=== PATIENT | female | born 1930 | race Caucasian/White ===

== ENCOUNTER 2016-11-10 15:27 | Inpatient (IN) | payer MEDICARE ==
[~2016-11-10] VITALS: Ht 162.6 cm; Wt 63.6 kg
--- NOTE | ~2016-11-10 | PN ---
PATIENT:TAYLOR NUR MEDICAL RECORD: [id number] LOCATION:[facility] ADMISSION DATE: 11/10/16 PROGRESS NOTE DATE OF SERVICE: 11/18/2016 SUBJECTIVE: The patient's case was discussed with staff. She has no new complaint. OBJECTIVE: The patient is in good behavioral control with limited insight about her condition. She is tolerating her medicines well. She denies that she would seek to harm herself or others. Her long-term prognosis is guarded. She is to be discharged today and follow up will be with her primary care physician. TRANSINT:[id number] Voice Confirmation ID: [id number] DOCUMENT ID: [id number] MIROSLAVA ZAPIEN MD CC: [id number] DICTATION DATE: 11/18/16 1416 CAP INSPECTOR: 11/18/16 1754 ADM IN [place] [id number] [place] [id number]
[~2016-11-10 15:27] MED LIST: BAYER CHEWABLE81 MG PO; CHLORTHALIDONE25 MG PO; CLARITIN 10 MG10 MG PO; COZAAR100 MG PO; DILANTIN100 MG PO; GLIMEPIRIDE4 MG PO; GLUCOPHAGE1000 MG PO; LASIX40 MG PO; NASACORT AQ16.5 GM NASAL; PRAVASTATIN SOD10 MG PO; SYNTHROID100 MCG PO; TENORMIN50 MG PO; THERMOTABS 1 GM1 GM PO
[2016-11-10] MEDS ORDERED: KEPPRA500 MG PO (15:37)
[2016-11-10] MEDS ORDERED: SYNTHROID75 MCG PO (15:38)
[2016-11-10] MEDS ORDERED: LIPITOR10 MG PO (15:40)
[2016-11-10] MEDS ORDERED: GLUCOSAMINE & C1 CAP PO (15:43)
[2016-11-10] MEDS ORDERED: METHOTREXATE2.5 MG PO (15:44)
[2016-11-10] MEDS ORDERED: NORVASC5 MG PO (15:45)
[2016-11-10] MEDS ORDERED: FOLIC ACID1 MG PO (15:46)
[2016-11-10] MEDS ORDERED: TEMOVATE30 GM TOPICAL (15:48)
[2016-11-10] MEDS ORDERED: TOPICORT TOPICAL ×2 (15:49)
[2016-11-10] MEDS ORDERED: TRADJENTA5 MG PO (15:51)
[2016-11-10] MEDS ORDERED: MURO-128 OPTH3.5 GM EACH EYE (15:52)
[2016-11-10] MEDS ORDERED: BIOTIN5 MG PO (15:55)
[2016-11-10 17:04] VITALS: BP 141/59; BMI 24.1
--- NOTE | 2016-11-10 18:14 | NUR ---
PATIENT IS ADMITTED TO SON LERNER AND JULIANA, SHE COMES TO [facility] VIA EMS ON A STRETCHER ATTENDED BY TWO EMS STAFF. PATIENT IS ASSISTED OFF OF STRETCHER AND AMBULATES INDEPENDENTLY TO THE CHAIR IN THE DAY ROOM. PATIENT IS AGITATED THAT SHE IS HERE. APPARENTLY SHE MADE THE STATEMENT THAT SHE TRIED TO PUT A PLASTIC BAG OVER HER HEAD TO KILL HERSELF. WHEN ASKED WHY SHE IS HERE SHE SAID "OH, I MADE THE STUPID MISTAKE OF TELLING THEM I WANTED TO KILL MYSELF" DAUGHTER STATES SHE [facility] AND HER MOTHER HAS BEEN WORRIED ABOUT THE TRANSITION. PATIENT DENIES THAT SHE HAS DEMENTIA, BUT IN 2007 SHE HAD A BLEED AND SINCE THE BLEED PATIENT HAS HAD SEIZURES AND DEMENTIA. PATIENT HAS BEEN LIVING AT HOME ALONE WITH A CAREGIVER COMING OVER FOR THREE HOURS EACH DAY. DAUGHTER HAS BEEN SETTING UP HER MEDS FOR HER, BUT PATIENT IS NOT EATING WELL OR SLEEPING WELL. 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 SHE IS SITTING IN THE DAY ROOM READING. 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 HER DAUGHTER TOOK HER WATCH, EAR RINGS, AND LIFE ALERT.
[2016-11-10 18:36] LABS: ANION GAP 15.1 mmol/L (8-16); BILIRUBIN - TOTAL 0.4 mg/dL (0.2-1.3); CARBON DIOXIDE 26.2 mmol/L (21.0-32.0); CHOL - HDL RATIO 1.7 ratio (2.3-4.1); LDL-HDL RATIO 0.5 ratio (1.5-3.5); POTASSIUM - SERUM 4.3 mmol/L (3.5-5.1); PROTEIN - SERUM 7.2 g/dL (6.4-8.2); THYROID STIMULATING HORMONE 0.79 uIU/mL (0.36-3.74)
[2016-11-10 19:12] LABS: HEMOGLOBIN A1C 7.6 % (4.8-6.0)
[2016-11-10 19:25] VITALS: BP 163/58
--- NOTE | 2016-11-10 19:44 | NUR ---
RECEIVED IN DAYROOM. SITTING QUIETLY IN HALLWAY. NOT SOCIALIZING WITH PEERS. CALM AND COOPERATIVE WITH CARE AND ASSESSMENTS. WHEN ASK IF SHE IS THINKING ABOUT HARMING HERSELF SHE STATED 'NO. NOT RIGHT NOW." ENCOURAGE TO EXPRESS NEEDS. CONTINUE PLAN OF CARE
[2016-11-11 07:00] VITALS: BP 132/47
[2016-11-11 09:52] VITALS: BMI 24.0
[2016-11-11 10:37] VITALS: Ht 162.6 cm; Wt 63.6 kg
--- NOTE | 2016-11-11 18:06 | NUR ---
ALERT TO NAME ONLY. DENIES SELF-HARM. COOPERATIVE AND CALM WITH CARE. ASSESSMENT COMPLETED. PRESCRIBED MEDICATIONS GIVEN AND COMPLIANT WITH TAKING. NON-SOCIAL WITH PEERS, SITS IN DINING ROOM READING A BOOK. SAFETY MAINTAINED. WILL COMNTINUE PLAN OF CARE.
[2016-11-11 19:37] VITALS: BP 122/53
--- NOTE | 2016-11-11 19:48 | NUR ---
RECEIVED IN HALLWAY. STANDING AT NURSES STATION. SOCIAL WITH STAFF. CALM AND COOPERATIVE WITH CARE AND ASSESSMENTS. DENIES THOUGHTS OF SELF HARM. CONTINUES TO SIT IN HALLWAY AT THIS TIME. CONTINUE PLAN OF CARE
[2016-11-12 07:02] LABS: APPEARANCE CLEAR (CLEAR); BACTERIA FEW /hpf (NONE SEEN); BILIRUBIN NEGATIVE (NEGATIVE); COLOR YELLOW (YELLOW); EPITHELIAL CELLS 0-5 /hpf (0-5); GLUCOSE NEGATIVE (NEGATIVE); KETONE NEGATIVE (NEGATIVE); LEUKOCYTE ESTERASE TRACE (NEGATIVE); MUCUS <1+ /lpf (NONE SEEN); NITRITE NEGATIVE (NEGATIVE); PROTEIN NEGATIVE (NEGATIVE); UROBILINOGEN NORMAL (NORMAL); WHITE CELLS - URINE 0-5 /hpf (0-5)
[2016-11-12 08:17] LABS: FOLATE (FOLIC ACID) - SERUM >20.0 ng/mL (>3.0)
[2016-11-12 08:48] VITALS: BP 140/57
--- NOTE | 2016-11-12 10:00 | NUR ---
Rec'd pt in dining room for b'fast, alert, pleasant mood at this time, appetite good, feeds self after setup. Meds admin per orders. Group therapy provided. Med compliant. Hazel meds well without s/s adverse reaction. Cont plan of care including meds and group therapy.
[2016-11-12 10:17] LABS: VITAMIN D 25 HYDROXY 27.1 ng/mL (30.0-100.0)
--- NOTE | 2016-11-12 15:29 | PSY ---
PATIENT NAME:TAYLOR NUR MEDICAL RECORD: [id number] : [birth year] LOCATION:[id number] ADMISSION DATE: 11/10/16 ACCOUNT: [id number] PSYCHIATRIC EVALUATION DATE OF EVALUATION: 11/11/16 IDENTIFYING DATA: The patient is 86 years old and she is admitted to the hospital on a voluntary basis. CHIEF COMPLAINT: Depression. HISTORY OF PRESENT ILLNESS: The patient is an elderly woman who has a history of conflict with her family. The brief version of this is that the family wants her to move into an assisted living center and she does not want to go. She took a plastic bag wrapped it around her head in front of her daughter and said she was going to kill herself. The family watched her through the night and then brought her to the hospital the next day. When asked if she wants to kill herself. She says that she has thought about it, but does not really know how she could. She says that the plastic bag did not work very well. She says she does not have a gun and that she has looked up all of her medications and does not think that any of them would do the trick. This is not a very reassuring answer. She denies that she is depressed, but then goes on to endorse numerous neurovegetative depressive symptoms. The core problem as I see it so far is that the patient does not want to go to the [facility]. She wants to live in her own home, but the family does not feel it is safe for her to do that. 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 She does have some mild hearing loss and she has some neuropathy in her legs. She also has thyroid disease and diabetes. The patient has high blood pressure and coronary artery disease and has had angioplasty. She has had a stent placed in her coronary arteries and also has cataracts. FAMILY PSYCHIATRIC HISTORY: Denied by the patient. ALLERGIES: CODEINE. CURRENT MEDICATIONS: Include Lasix, aspirin, Amaryl, Glucophage, Keppra, Synthroid, Lipitor, Norvasc, Pravachol. SOCIAL HISTORY: The patient was once to the same man for 43 years. He about 20 years ago. They had 3 children together, 2 of whom are still living. There is a daughter who is in [place] and apparently, the patient lives in a house close to her in [place]. 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 MENTAL STATUS EXAMINATION: The patient is awake, alert and oriented to person, place, time and situation. Her mood is flat. Her affect is constricted. Thought processes are circumstantial. Memory, concentration and abstraction abilities are mildly impaired. She denies any active intent to harm herself or others. She denies psychotic symptoms. ASSETS: Supportive family members. LIABILITIES: Limited insight. DIAGNOSTIC IMPRESSION: AXIS I: Major depression, severe, recurrent without psychotic features. AXIS II: Deferred. AXIS III: Status post stroke and internal brain bleed. Diabetes, hypertension, hypothyroidism and coronary artery disease. AXIS IV: Moderate stressors. AXIS V: Global assessment of functioning is 35. PLAN: At this time, the patient is admitted to the hospital secondary to suicidal thoughts associated with a depressive illness. She will be tested by Dr. Whitney Gill for evidence of cognitive decline. I am going to give her an antidepressant medication. Her long-term prognosis is guarded. TRANSINT:[id number] Voice Confirmation ID: [id number] DOCUMENT ID: [id number] MIROSLAVA ZAPIEN MD at 1529 CC: [id number] DICTATION DATE: 11/11/16 1451 TECHNICAL SUPPORT ENGINEER: 11/11/16 1602 [facility] IN [place] [id number] [place] [address]
[2016-11-12 19:30] VITALS: BP 150/66
--- NOTE | 2016-11-12 20:20 | NUR ---
B) ALERT AND ORIENTED X 3, CALM AND COOPERATIVE WITH CARE, DENIES SELF-HARM. I) ADMINISTERED PRESCRIBED MEDICATIONS. ASSESSMENT COMPLETED. VSS. R) MEDICATIONS COMPLIANT AND UNIT MILIEU. AMBULATES INDEPENDENTLY. P) CONTINUE PLAN OF CARE.
[2016-11-13 09:41] VITALS: BP 140/59
--- NOTE | 2016-11-13 12:33 | PN ---
PATIENT:TAYLOR NUR MEDICAL RECORD: [id number] LOCATION:[facility] ADMISSION DATE: 11/10/16 PROGRESS NOTE DATE OF SERVICE: 11/12/2016 SUBJECTIVE: The patient's case was discussed with staff. She has no new complaint. OBJECTIVE: The patient denies intent to harm herself or others. She tolerates her medicines well. Eye contact is fair. Concentration is fair. ASSESSMENT: No change in diagnoses. PLAN: Current medicines have been reviewed and will be maintained. Long-term prognosis is guarded. I am encouraged that she no longer is wanting to hurt herself and has started her on antidepressant medications. TRANSINT:[id number] Voice Confirmation ID: [id number] DOCUMENT ID: [id number] MIROSLAVA ZAPIEN MD at 1233 CC: [id number] DICTATION DATE: 11/12/16 1547 BURNER MACHINE OPERATOR: 11/12/16 2155 ADM IN [facility] [address] [place] [address]
[2016-11-13] MEDS ORDERED: CYMBALTA30 MG PO (12:58)
[2016-11-13] MEDS ORDERED: KENALOG 0.1 % 115 GM TOPICAL (12:59)
[2016-11-13] MEDS ORDERED: CLOBETASOL PROP15 GM TOPICAL (12:59)
--- NOTE | 2016-11-13 13:44 | NUR ---
B) PATIENT IS AWAKE AND ALERT, SHE IS ORIENTED X 3 TODAY, SHE DENIES DEPRESSION, SHE DENIES S.I. SHE MOSTLY STAYS TO HERSELF AND READS, SHE CAN BE TERSE AND MATTER OF FACT IN HER ANSWERS TO QUESTIONS AT TIMES. PATIENT AMBULATES WELL INDEPENDETLY. I) PROVIDE PRESCRIBED MEDS. R) PATIENT IS COMPLIANT WITH MEDS. P) CONTINUE POC.
[2016-11-13 19:56] VITALS: BP 137/62
--- NOTE | 2016-11-14 04:04 | NUR ---
B) Patient is alert and oriented X 3, calm and reading a book, keeping to herself, friendly and pleasent during assessment. I) Administered scheduled medications, contracted for safety, monitored for safety. R) medication compliant, no S.I. this shift, no behaviors noted. P) Continue plan of care.
[2016-11-14 09:30] VITALS: BP 119/51
--- NOTE | 2016-11-14 11:54 | PN ---
PATIENT:TAYLOR NUR MEDICAL RECORD: [id number] LOCATION:[facility] ADMISSION DATE: 11/10/16 PROGRESS NOTE DATE OF SERVICE: 11/13/2016 SUBJECTIVE: The patient's case was discussed with staff. She has no new complaint. OBJECTIVE: The patient is in good behavioral control with limited insight about her condition. She does tolerate her medicines well. ASSESSMENT: No change in diagnoses. PLAN: Supportive and educational interventions were made. The patient is tolerating her medicines well. She certainly has no evidence of acute dangerousness. I anticipate she can be transitioned out of the hospital tomorrow. TRANSINT:[id number] Voice Confirmation ID: [id number] DOCUMENT ID: [id number] MIROSLAVA ZAPIEN MD at 1154 CC: [id number] DICTATION DATE: 11/13/16 1252 GERONTOLOGY AIDE: 11/13/16 1920 ADM IN [facility] [address] [place] [address]
--- NOTE | 2016-11-14 12:15 | NUR ---
B) PATIENT IS AWAKE AND ALERT, SHE IS QUIET AND CALM AND STAYS TO HERSELF, SHE HAS MINIMAL CONFUSION, BUT SHE CAN CARRY CONVERSATIONS WELL, SHE DOES WEAR HEARING AIDS. PATIENT IS AMBULATING INDEPENDENTLY. I) PROVIDE PRESCRIBED MEDS. R) PATIENT IS COMPLIANT WITH MEDS. PATIENT'S DAUGHTER DID CALL AND ASK IF PATIENT CAN STAY UNTIL , SPOKE TO DR. ZAPIEN AND SUKHWINDER SHARMA AND BOTH OF THEM STATE THAT THE D/C ORDER IS IN AND ARRANGEMENTS HAVE BEEN MADE FOR A THURSDAY 1300 VISUAL BASIC PROGRAMMER FOR THE PATIENT. SUSAN CORTEZ CALLED PATIENTS DAUGHTER AND RELAYED THIS MESSAGE. PATIENTS DAUGHTER CONCERNED THAT THE CARPET IN THE PATIENTS ROOM WOULD NOT BE CLEAN BY THEN. P) CONTINUE POC.
[2016-11-14 19:58] VITALS: BP 142/69
--- NOTE | 2016-11-15 04:25 | NUR ---
B) Patient alert and oriented, calm and quiet, keeps to herself reading away from the noise in the day room, I) Administered scheduled medications, monitored for safety, contracted for safety. R) Medication compliant, friendly and pleasant, social with staff. P) Continue plan of care.
[2016-11-15 09:50] VITALS: BP 134/47
--- NOTE | 2016-11-15 09:50 | NUR ---
B) PATIENT'S BLOOD SUGAR WAS 62 THIS AM AND SO HER METFORMIN WAS HELD AND SHE REFUSED THE TRAJENTA, SHE AND HER DTR SAY THEY ARE NOT ABLE TO AFFORD IT AFTER SHE DISCHARGES, PATIENT'S DAUGHTER ALSO REQUESTS THE CYMBALTA BE ORDERED DULOXETINE SO THE INSURANCE WILL PAY FOR IT. PATIENT IS AWAKE AND ALERT, SHE IS [place] AND TURNS HER HEARING DOWN AT TIMES SO SHE DOES NOT HAVE TO BE AWARE OF THE OTHER PATIENTS. SHE HAS MADE NO MENTION OF DEPRESSION OR S.I. I) PROVIDE PRESCRIBED MEDS. GAVE TYLENOL 500 MG FOR C/O ACHEY BONES RATES IT 2-3. R) PATIENT IIS COMPLIANT WITH MEDS. P) CONTINUE POC.
--- NOTE | 2016-11-15 10:30 | NUR ---
PATIENT SAYS HER PAIN IS LESS. SHE HAS A BLANKET AND SITTING IN THE DAY ROOM. TRYING TO CLOSE HER EYES.
--- NOTE | 2016-11-15 12:17 | PN ---
PATIENT:TAYLOR NUR MEDICAL RECORD: [id number] LOCATION:[facility] ADMISSION DATE: 11/10/16 PROGRESS NOTE DATE OF SERVICE: 11/14/2016 SUBJECTIVE: The patient's case was discussed with staff. She has no new complaint. OBJECTIVE: The patient is not suicidal. She has a euthymic mood and is read 300 pages of books since yesterday. She kept her mind on it. I asked her questions about what she was reading and she appeared to be giving me interesting run down of the story. I presume it is correct. ASSESSMENT: No change in diagnoses. PLAN: The patient was to be discharge today and is ready to be transitioned to a lower level of care. Unfortunately, her room at the [facility] is not ready and will not be ready until late next week. It would seem appropriate for her to go home with her daughter until that can be arranged and I am not sure why that is not going to happen today. Obviously, we were not going to discharge her from the facility without appropriate supervision housing placement and transportation, but from a clinical standpoint, she is ready to be discharge. TRANSINT:[id number] Voice Confirmation ID: [id number] DOCUMENT ID: [id number] MIROSLAVA ZAPIEN MD at 1217 CC: [id number] DICTATION DATE: 11/14/16 1210 DRUG ABUSE PROGRAM COORDINATOR: 11/14/16 1350 ADM IN [facility] [address] [place] [id number]
[2016-11-15 20:37] VITALS: BP 166/64
[2016-11-15 20:55] VITALS: BP 166/64
--- NOTE | 2016-11-16 04:16 | NUR ---
B) Patient is alert and oriented X 3, keeps to herself with her hearing aids turned down or off, sits quietly resd a book, calm and cooperative with staff, I) Administered scheduled medications, monitored for safety, contracted for safety. R) Medication compliant, pleasant and friendly P) Continue plan of care.
[2016-11-16 07:00] VITALS: BP 132/52
--- NOTE | 2016-11-16 13:22 | NUR ---
IS ALERT AND ORIENTED X 3.DENIES SUICIDAL IDEATIONS AND DEPRESSION.CONTRACTED WITH NURSE TO TALK WITH NURSE IF SHE HAS THOUGHTS OF HARMING SELF.SITS AND READS MOST OF DAY.COMPLIANT WITH STAFF AND MEDS.WILL CONTINUE WITH PLAN OF CARE,MONITOR FOR CHANGES AND SAFETY.
[2016-11-16 20:50] VITALS: BP 124/68
--- NOTE | 2016-11-16 21:00 | NUR ---
RECEIVED IN HALLWAY. STANDING OUTSIDE OF NURSES STATION. ALERT AND OREINTED. CALM AND COOPERATIVE WITH CARE AND ASSESSMENTS. ENCOURAGE TO EXPRESS NEEDS. RESTING IN BED EYES CLOSED AT THIS TIME. CONTINUE PLANH OF CARE
[2016-11-17 07:00] VITALS: BP 139/55
--- NOTE | 2016-11-17 10:00 | NUR ---
ASSESSMENT COMPLETED. SHE OSOLATES HERSELF AND READS. COMPLIANT WITH TAKING MEDS. CONTINUE PLAN OF CARE.
--- NOTE | 2016-11-17 13:45 | PN ---
PATIENT:TAYLOR NUR MEDICAL RECORD: [id number] LOCATION:[facility] ADMISSION DATE: 11/10/16 PROGRESS NOTE DATE OF SERVICE: 11/15/2016 SUBJECTIVE: The patient's case was discussed with staff. She has no new complaint. OBJECTIVE: The patient is eating and sleeping well. She is ready for discharge, but unfortunately arrangement has not been found. More accurately, arrangement has been found, but the room is not ready. ASSESSMENT: No change in diagnoses. PLAN: The patient may be discharged at any time. I am not clear why her family cannot watch her for a few days, but I am told that that is not an option. TRANSINT:[id number] Voice Confirmation ID: [id number] DOCUMENT ID: [id number] MIROSLAVA ZAPIEN MD at 1345 CC: [id number] DICTATION DATE: 11/15/16 1243 PRINCIPAL ANDROID DEVELOPER: 11/15/162020 ADM IN [facility] [address] [place] [address]
--- NOTE | 2016-11-17 14:03 | NUR ---
Nutrition Follow Up: Chart reviewed. Pt is eating 74% meal avg on a diabetic diet. +BM 11/16/16. No new wt. Labs and meds noted. Rec continue current diet. RD following.
[2016-11-17 19:31] VITALS: BP 173/70
--- NOTE | 2016-11-17 23:14 | NUR ---
RECIEVED IN DINING ROOM. KEEPING TO SELF READING. CALM AND COOPERATIVE WITH CARE AND ASSESSMENT. ALERT AND ORIENTED. ENCOURAGED TO EXPRESS NEEDS. RESTING IN BED WITH EYES CLOSED AT THIS TIME. CONTINUE PLAN OF CARE.
--- NOTE | 2016-11-18 08:01 | NUR ---
SW SPOKE WITH PT'S DTR, TAWANA, ABOUT DISCHARGE PLANS. PT WILL BE GOING TO THE [facility] AND FOLLOWING UP WITH DR. ROBERTS. SW EDUCATED ON MEDICATION REGIMEN AND DISEASE PROGRESSION. SW ASKED PT IF SHE WOULD PARTICIPATE IN FAMILY OR INDIVIDUAL THERAPY AND PT DECLINED.
[2016-11-18 09:21] VITALS: BP 139/56
--- NOTE | 2016-11-18 11:00 | NUR ---
CALM, COOPERATIVE WITH CARE. DENIES SELF-HARM. MEDICATION COMPLIANT WITH PRESCRIBED MEDS.
--- NOTE | 2016-11-18 12:00 | NUR ---
DISCHARGE SCHEDULED FOR TODAY AT 01;00 TO GO TO THE [facility]. ALL PAPERWORK REVIEWED AND FAXED TO THE [facility]. ALL BELONGINGS BAGGED AND COUNTED FOR.
--- NOTE | 2016-11-18 14:04 | PN ---
PATIENT:TAYLOR NUR MEDICAL RECORD: [id number] LOCATION:[facility] ADMISSION DATE: 11/10/16 PROGRESS NOTE DATE OF SERVICE: 11/17/2016 SUBJECTIVE: The patient's case was discussed with staff. She has no new complaint. OBJECTIVE: The patient is in good behavioral control with limited insight about her condition. She does tolerate her medicines well. Eye contact is poor. She certainly has no evidence of acute or direct dangerousness. ASSESSMENT: No change in diagnoses. PLAN: The patient will be transitioned to the [facility] tomorrow. She is in good behavioral control. Followup will be with her primary care physician. TRANSINT:[id number] Voice Confirmation ID: [id number] DOCUMENT ID: [id number] MIROSLAVA ZAPIEN MD at 1404 CC: [id number] DICTATION DATE: 11/17/16 1354 ROD PLACER: 11/17/16 1424 ADM IN [place] [id number] [place] [address]
--- NOTE | 2016-11-18 18:00 | NUR ---
CALLED 2 SCRIPTS IN TO [facility] [address] WITH PAULINE LEE.
== END 2016-11-18 13:00 | disposition home or self-care (01) | DRG 885 ==
LOC: D.PSYCH 15:27
PROVIDERS: ADMIT Psychiatry & Neurology Psychiatry
DX: F33.2 Major depressive disorder, recurrent severe without psychotic features (principal); F01.51 Vascular dementia, unspecified severity, with behavioral disturbance; I69.919 Unspecified symptoms and signs involving cognitive functions following unspecified cerebrovascular disease; E78.5 Hyperlipidemia, unspecified; F41.9 Anxiety disorder, unspecified; E11.649 Type 2 diabetes mellitus with hypoglycemia without coma; E03.9 Hypothyroidism, unspecified; I25.10 Atherosclerotic heart disease of native coronary artery without angina pectoris; G40.909 Epilepsy, unspecified, not intractable, without status epilepticus; L40.9 Psoriasis, unspecified